=== PATIENT | male | born 1980 | race Caucasian/White ===

== ENCOUNTER → 2016-07-25 | Outpatient (CLI) | payer OTHER ==
[~2016-07-25] MED LIST: BENADRYL; CYMBALTA; DILAUDID; FLAGYL; PHENERGAN; PREDNISONE; REMICADE
== END | disposition home or self-care (01) ==
LOC: RAD 09:20
PROVIDERS: ATTEND Neurological Surgery
DX: S12.600A Unspecified displaced fracture of seventh cervical vertebra, initial encounter for closed fracture (principal); X58.XXXA Exposure to other specified factors, initial encounter; Y93.89 Activity, other specified; Y92.89 Other specified places as the place of occurrence of the external cause; Y99.2 Volunteer activity
CPT/HCPCS: 72050